=== PATIENT | male | born 1935 | race Caucasian/White ===

== ENCOUNTER → 2019-06-10 | Outpatient (CLI) | payer MEDICARE, OTHER | LOC: COL.RAD 09:05 | DX: C61 Malignant neoplasm of prostate (principal) | CPT/HCPCS: A9503 ==

== ENCOUNTER 2023-07-06 08:14 | Day surgery (SDC) | payer MEDICARE, OTHER ==
[~2023-07-06] VITALS: Ht 170.2 cm; Wt 83.5 kg
[2023-07-06 09:08] VITALS: BP 141/86; PULSE 85; TEMP 97.3
[2023-07-06] MEDS ORDERED: MINIPRESS2 MG (09:18)
[2023-07-06] MEDS ORDERED: ELIQUIS 5MG PO (09:19)
[2023-07-06] MEDS ORDERED: NORVASC 10MG10 MG PO (09:19)
[2023-07-06] MEDS ORDERED: RT ADVAIR 128 DISKUS IH (09:20)
[2023-07-06] MEDS ORDERED: PRINIVIL40 MG PO (09:20)
[2023-07-06] MEDS ORDERED: CALCIUM 600 MG1 EAC2 PO (09:21)
[2023-07-06 10:30] VITALS: BP 106/69; PULSE 76; TEMP 97.4
[2023-07-06 10:45] VITALS: BP 129/73; PULSE 68
[2023-07-06 11:00] VITALS: BP 135/78; PULSE 66
--- NOTE | 2023-07-06 11:25 | NUR ---
1030 RETURNS TO ROOM 7 PER CART. AWAKE, AERLT. RESP UNLABORED. AMBULATES TO RECLINER WITH STANDBY ASSIST. DENIES NAUSEA OR ABD PAIN. VITAL SIGNS OBTAINED. CALL LIGHT AT SIDE. SON IN ROOM 1045 TOLERATES PO COFFEE WITHOUT NAUSEA 1055 DISCHARGE INSTRUCTIONS REVIEWED. PATIENT VERBALIZES UNDERSTANDING. COPY PROVIDED IN DISCHARGE FOLDER 1110 DR. LACY HERE TO VISIT WITH PATIENT 1118 DRESSES SELF
== END 2023-07-06 11:25 | disposition home or self-care (01) ==
LOC: SDCO 08:14
DX: K57.30 Diverticulosis of large intestine without perforation or abscess without bleeding (principal); K62.89 Other specified diseases of anus and rectum; G47.33 Obstructive sleep apnea (adult) (pediatric)
CPT/HCPCS: J2704; J7120